=== PATIENT | female | born 1930 | race Caucasian/White ===

== ENCOUNTER 2017-12-30 16:08 | Emergency (ER) | payer MEDICARE, MEDICAID ==
[2017-12-30 16:15] VITALS: BP 205/89
--- NOTE | 2017-12-30 18:16 | EDM.PDOC ---
ED HPI GENERAL MEDICAL PROBLEM - General Chief Complaint: General Stated Complaint: [facility] Time Seen by Provider: 12/30/17 16:54 Source of Information: Reports: Patient, Family (Son) History Limitations: Reports: No Limitations - History of Present Illness INITIAL COMMENTS - FREE TEXT/NARRATIVE: The patient states that she felt generally weak and dizzy today after she ate lunch, around noon. It is difficult to determine if the patient's dizziness is due to lightheadedness or vertigo. She states that it "felt like something wrong ". She reports loose bowel movements yesterday, but not today. She reports urinary frequency for the past few days, but no dysuria. No recent fever, chills , cough, chest pain, dyspnea, nausea, vomiting, or constipation. The patient states that she fell about 2 weeks ago, during physical therapy. She was not injured, but the that scared her, and the patient feels that that fear may be contributing to her current symptoms. The patient also reports that she saw Dr. Burris one week ago, Friday, 2017, for a steroid injection of her left knee. The patient's PCP is Dr. Lorenzo. - Related Data Allergies Allergy/AdvReac Type Severity Reaction Status Date / Time ciprofloxacin Allergy Cannot Verified 06/22/14 07:09 Remember diazepam [From Valium] Allergy Cannot Verified 06/22/14 07:09 Remember escitalopram oxalate Allergy Rash Verified 07/23/15 20:17 [From Lexapro] Iodinated Contrast- Oral and Allergy Cannot Verified 06/22/14 07:09 IV Dye Remember [Iodinated Contrast Media - IV Dye] morphine Allergy Swollen Verified 06/22/14 07:17 Tongue Penicillins Allergy Swollen Verified 06/22/14 07:17 Tongue tramadol AdvReac Anxiety Verified 07/24/15 09:29 Home Meds: Home Meds Acetaminophen [Tylenol Extra Strength] 1,000 mg PO Q6H 05/02/15 [History] Atenolol 25 mg PO DAILY 05/02/15 [History] Losartan [Cozaar] 100 mg PO DAILY 05/02/15 [History] Aspirin 81 mg PO DAILY 12/30/17 [History] Bisacodyl [Dulcolax] 10 mg RECTAL DAILY PRN 12/30/17 [History] Calcium Carbonate/Vitamin D2 [Oyster Shell Calcium-Vit D Tab] 1 tab PO DAILY [History] Ibuprofen 200 mg PO Q4H PRN 12/30/17 [History] Mchenry-3/DHA/Epa/Fish Oil [Mchenry-3 Fish Oil 1,000 MG Sfgl] 1 tab PO DAILY [History] Propylene Glycol [Systane Balance] 1 drop EYEBOTH TID 12/30/17 [History] Past Medical History HEENT History: Reports: Hard of Hearing, Impaired Vision Cardiovascular History: Reports: CAD, Hypertension, [place] Genitourinary History: Reports: Urinary Incontinence CAD DRAFTER History: Reports: Musculoskeletal History: Reports: Arthritis, Back Pain, Chronic Neurological History: Reports: CVA Hematologic History: Reports: Blood Transfusion(s) - Past Surgical History HEENT Surgical History: Reports: Cataract Surgery, Oral Surgery ([place] teeth extraction), Other (See Below) (left inner ear surgery) Cardiovascular Surgical History: Reports: Coronary Artery Bypass (x 1 vessel around 2011) Female Surgical History: Reports: Hysterectomy, Salpingo-Oophorectomy, Other (See Below) (Bladder suspension) Musculoskeletal Surgical History: Reports: Hip Replacement (bilateral) Social & Family History - Tobacco Use Smoking Status *Q: Never Smoker Second Hand Smoke Exposure: No - Caffeine Use Caffeine Use: Reports: Coffee Other Caffeine Use: fiona alfredo - Alcohol Use Alcohol Use History: No - Recreational Drug Use Recreational Drug Use: No - Living Situation & Occupation Living situation: Reports: , Extended Care Facility ([facility]) Occupation: Retired ED ROS GENERAL - Review of Systems Review Of Systems: ROS reveals no pertinent complaints other than HPI. ED EXAM, GENERAL - Physical Exam Exam: See Below Exam Limited By: No Limitations General Appearance: Alert, WD/WN, No Apparent Distress Eye Exam: Bilateral Eye: Normal Inspection Ears: Normal External Exam, Hearing Grossly Normal Nose: Normal Inspection, No Blood Throat/Mouth: Normal Inspection, Normal Lips, Normal Voice, No Airway Compromise Head: Atraumatic, Normocephalic Neck: Normal Inspection, Full Range of Motion Respiratory/Chest: No Respiratory Distress, Lungs Clear, Normal Breath Sounds, No Accessory Muscle Use Cardiovascular: Normal Peripheral Pulses, Regular Rate, Rhythm, No Edema, No Gallop, No JVD, No Murmur, No Rub, Other (Fixed split S1) Peripheral Pulses: 4+: Radial (L), Radial (R) GI/Abdominal: Normal Bowel Sounds, Soft, No Organomegaly, No Distention, No Abnormal Bruit, No Mass, Tender (Suprapubic only. Nontender elsewhere.) (Female) Exam: Deferred Rectal (Female) Exam: Deferred Extremities: Normal Inspection, Normal Range of Motion, No Pedal Edema, Normal Capillary Refill Neurological: Alert, No Motor/Sensory Deficits, Slow to Respond Psychiatric: Flat Affect Skin Exam: Warm, Dry, Intact, Normal Color, No Rash EKG INTERPRETATION EKG Date: 12/30/17 Time: 18:12 Rhythm: Other (Sinus arrhythmia) Rate (Beats/Min): 60 [place]: LAD-Left [place] Deviation P-Wave: Present (First-degree AV block) QRS: Normal ST-T: Normal QT: Normal Comparison: No Change (07/23/2015) Course - Vital Signs Last Recorded V/S: Last Vital Signs Temp 36.6 C 12/30/17 16:14 Pulse 67 12/30/17 16:14 Resp 20 12/30/17 16:14 BP 205/89 H 12/30/17 16:14 Pulse Ox 96 12/30/17 16:14 Orthostatic Blood Pressure [ 196/115 Sitting] Orthostatic Blood Pressure [ 198/82 Supine] - Orders/Labs/Meds Orders: Active Orders 24 hr Category Date Time Status EKG Documentation Completion [RC] STAT Care 12/30/17 17:31 Active Orthostatic Vital Signs [RC] STAT Care 12/30/17 17:31 Active UA W/MICROSCOPIC [URIN] Stat Lab 12/30/17 17:46 Ordered Labs: Laboratory Tests 12/30/17 12/30/17 12/30/17 Range/Units 17:46 18:06 18:06 WBC 7.54 (3.98-10.04) K/mm3 RBC 3.82 L (3.98-5.22) M/mm3 Hgb 12.7 (11.2-15.7) gm/L Hct 39.0 (34.1-44.9) % MCV 102.1 H (79.4-94.8) fl MCH 33.2 H (25.6-32.2) pg MCHC 32.6 (32.2-35.5) g/dl RDW Std Deviation 43.5 (36.4-46.3) fL Plt Count 258 (182-369) K/mm3 MPV 8.9 L (9.4-12.3) fl Neutrophils % (Manual) 76 H (40-60) % Band Neutrophils % 0 (0-10) % Lymphocytes % (Manual) 15 L (20-40) % Atypical Lymphs % 0 % Monocytes % (Manual) 5 (2-10) % Eosinophils % (Manual) 3 (0.7-5.8) % Basophils % (Manual) 1 (0.1-1.2) Platelet Estimate Adequate Plt Morphology Comment Normal Macrocytosis 1+ slight RBC Morph Comment Not Reportable Sodium 136 (136-145) mEq/L Potassium 4.7 (3.5-5.1) mEq/L Chloride 101 (98-107) mEq/L Carbon Dioxide 29 (21-32) mEq/L Anion Gap 10.7 (5-15) BUN 28 H (7-18) mg/dL Creatinine 1.0 (0.55-1.02) mg/dL Est Cr Clr Drug Dosing 34.87 mL/min Estimated GFR (MDRD) 53 (>60) mL/min BUN/Creatinine Ratio 28.0 H (14-18) Glucose 98 (83-115) mg/dL Calcium 9.4 (8.5-10.1) mg/dL Magnesium 2.3 (1.8-2.4) mg/dl Total Bilirubin 0.5 (0.2-1.0) mg/dL AST 17 (15-37) U/L ALT 25 (14-59) U/L Alkaline Phosphatase 70 (46-116) U/L Troponin I < 0.017 (0.00-0.056) ng/mL Total Protein 7.3 (6.4-8.2) g/dl Albumin 3.6 (3.4-5.0) g/dl Globulin 3.7 gm/dL Albumin/Globulin Ratio 1.0 (1-2) TSH 3rd Generation 1.446 (0.358-3.74) uIU/mL Urine Color Light yellow (Yellow) Urine Appearance Clear (Clear) Urine pH 7.5 (5.0-8.0) Ur Specific [place] 1.015 (1.005-1.030) Urine Protein Negative (Negative) Urine Glucose (UA) Negative (Negative) Urine Ketones Negative (Negative) Urine Occult Blood Negative (Negative) Urine Nitrite Negative (Negative) Urine Bilirubin Negative (Negative) Urine Urobilinogen 0.2 (0.2-1.0) Ur Leukocyte Esterase Negative (Negative) Urine RBC Not seen (0-5) /hpf Urine WBC Not seen (0-5) /hpf Ur Epithelial Cells 0-5 (0-5) /hpf Urine Bacteria Not seen (FEW) /hpf Urine Mucus Not seen (FEW) /hpf - Re-Assessments/Exams Free Text/Narrative Re-Assessment/Exam: 12/30/17 17:42 The patient is not orthostatic, however, blood pressure was checked only supine and sitting; the patient complained that the room was spinning with an attempt to stand. 12/30/17 18:23 Notified by Vicky MERINO that the patient's post-void urine volume was 700 mL. 12/30/17 18:43 I discussed the situation with the patient and her 2 sons. The patient doesn't say that the room was spinning, per se, just that something felt like it was not right. Further, the patient apparently has a bad lower back, bad enough to put her into the assisted, and is therefore not an appropriate candidate for Nuria-Hallpike maneuvers. 12/30/17 18:56 Test results discussed with the patient and her 2 sons. Pelon's workup, with the exception of the finding of urinary retention, is otherwise unremarkable. I do not see an indication to admit the patient to the hospital, however, since the patient is not feeling well, we offered placement into observation, if she wished. The patient feels that she is well enough to return to the assisted. I am recommending that she follow-up with Dr. Lorenzo at the next available appointment, preferably this week, and that he may refer the patient to a Urologist. Departure - Departure Time of Disposition: 18:57 Disposition: Home, Self-Care 01 Condition: Fair Clinical Impression: Disequilibrium, Generalized weakness, Urinary retention - Discharge Information Referrals: Hector Lorenzo MD [Primary Care Provider] - Forms: ED Department Discharge Additional Instructions: You were seen in the emergency room for generalized weakness and lightheadedness. Workup in the ER included blood work, a urinalysis, and ECG, and positional blood pressure checks. Your workup found that you have significant urinary retention - 700 mL post void. This needs to be followed up, likely with a Urologist. The remainder of your workup was unremarkable. The cause of your symptoms is not known. Follow-up with your PCP, Dr. Lorenzo, at the next available appointment. If any other problems, please do not hesitate to return to the ER. - My Orders Last 24 Hours: My Active Orders 12/30/17 17:31 EKG Documentation Completion [RC] STAT Orthostatic Vital Signs [RC] STAT 12/30/17 17:46 UA W/MICROSCOPIC [URIN] Stat - Assessment/Plan Last 24 Hours: My Active Orders 12/30/17 17:31 EKG Documentation Completion [RC] STAT Orthostatic Vital Signs [RC] STAT 12/30/17 17:46 UA W/MICROSCOPIC [URIN] Stat
== END 2017-12-30 19:18 | disposition home or self-care (01) ==
LOC: SUPCPDRO 16:08 → JD.ED 16:08
DX: E87.8 Other disorders of electrolyte and fluid balance, not elsewhere classified (principal); R33.9 Retention of urine, unspecified; I10 Essential (primary) hypertension; I25.2 Old myocardial infarction; Z88.1 Allergy status to other antibiotic agents; Z88.0 Allergy status to penicillin; Z79.82 Long term (current) use of aspirin
CPT/HCPCS: 36415; 80053; 81001; 83735; 84443; 84484; 85007; 85027; 93005; 99285-25

== ENCOUNTER 2019-12-25 05:27 | Emergency (ER) | payer MEDICARE, MEDICAID ==
[2019-12-25 05:31] VITALS: BP 123/80; PULSE 99
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
--- NOTE | 2019-12-25 10:11 | CR ---
Chest: Portable view of the chest was obtained. Comparison: No prior chest imaging is available. Heart size is slightly enlarged. Tortuous thoracic aorta is noted. Lung markings mildly increased most likely chronic. Degenerative change is noted within both shoulders. Bony structures are osteopenic. Nothing acute is definitely appreciated. Impression: 1. Findings as described above. 2. Nothing acute is definitely appreciated. Diagnostic code #2 This report was dictated in MDT
--- NOTE | 2019-12-25 10:11 | CT ---
CT cervical spine Technique: Multiple axial sections were obtained from above C1 inferiorly to the bottom of T3. Reconstructed sagittal and coronal images were reviewed. Comparison: No prior cervical spine imaging is available. Findings: Severe disc space narrowing is noted at C2-3, C4-5, C5-6 and T1-2 as well as T2-3. Mild spondylolisthesis is noted at T2-3 due to degenerative apophyseal change. Mild spondylolisthesis is noted at C7-T1 due to degenerative apophyseal change. Scattered posterior spurring is noted. Scattered neural foraminal narrowing is noted. No discrete fracture is appreciated. Impression: 1. Diffuse degenerative change and osteopenia. 2. No definite fracture is appreciated. Diagnostic code #2 This report was dictated in MDT I agree with preliminary report from sharif, finalized on 12/25/19, 7:39 AM Central Daylight Time
--- NOTE | 2019-12-25 10:11 | CT ---
Head CT Technique: Multiple axial sections through the brain were obtained. Intravenous contrast was not utilized. Comparison: No prior intracranial imaging is available. Findings: Ventricles along with basal cisterns and sulci over the convexities are moderately prominent. Diminished density is noted within the periventricular and subcortical white matter most likely representing small vessel ischemic demyelination change. No other abnormal parenchymal densities are seen. No evidence of intracranial hemorrhage. No midline shift or mass-effect is appreciated. Bone window settings were reviewed. Visualized paranasal sinuses show nothing acute. Atherosclerotic calcification is seen within the vertebral vessels and within the carotid siphon. Hypoplastic right maxillary sinus is noted which is developmental. Visualized mastoid sinuses show nothing acute. No acute calvarial abnormality is appreciated. Impression: 1. Senescent change as noted above. 2. No acute intracranial abnormality is appreciated. Diagnostic code #2 This report was dictated in MDT
--- NOTE | 2019-12-25 10:11 | CR ---
Right shoulder: 3 views of the right shoulder were obtained. Comparison: No prior shoulder exam. Severe degenerative change is noted within the glenohumeral joint with joint space narrowing, subchondral cysts and inferior osteophytes. Mild joint space narrowing is noted within the acromioclavicular joint. No acute fracture, dislocation or other bony abnormality is seen. Carotid artery calcification is seen within the neck. Impression: 1. Degenerative change as noted above. 2. No acute abnormality is appreciated on 3 view right shoulder exam. Diagnostic code #2 This report was dictated in MDT
--- NOTE | 2019-12-25 10:11 | CR ---
Pelvis and right hip: AP view of the pelvis was obtained as well as AP and frog-leg lateral views of the right hip. Comparison: Prior AP pelvis study and left hip exam of 04/25/09. Bilateral hip prosthesis are seen. Disc space narrowing is noted within the visualized lower lumbar spine. Bony structures are osteopenic. Vascular calcification is noted. No discrete fracture or dislocation is seen. Impression: 1. Findings as described above. 2. Nothing acute is seen on AP pelvis or on 2 view right hip exam. Diagnostic code #2 This report was dictated in MDT
== END 2019-12-25 07:58 | disposition home or self-care (01) ==
LOC: JD.ED 05:27
DX: S16.1XXA Strain of muscle, fascia and tendon at neck level, initial encounter (principal); S93.491A Sprain of other ligament of right ankle, initial encounter; S40.011A Contusion of right shoulder, initial encounter; S20.211A Contusion of right front wall of thorax, initial encounter; S70.01XA Contusion of right hip, initial encounter; I10 Essential (primary) hypertension; I25.2 Old myocardial infarction; I25.10 Atherosclerotic heart disease of native coronary artery without angina pectoris; M19.90 Unspecified osteoarthritis, unspecified site; Z86.73 Personal history of transient ischemic attack (TIA), and cerebral infarction without residual deficits; F32.9 Major depressive disorder, single episode, unspecified; Z88.1 Allergy status to other antibiotic agents; Z88.8 Allergy status to other drugs, medicaments and biological substances; Z91.041 Radiographic dye allergy status; Z88.5 Allergy status to narcotic agent; Z88.0 Allergy status to penicillin; Z79.899 Other long term (current) drug therapy; Z79.82 Long term (current) use of aspirin; W19.XXXA Unspecified fall, initial encounter
CPT/HCPCS: 70450; 70450-26; 71045; 71045-26; 72125; 72125-26; 73030-26-RT; 73030-RT; 73502-26-RT; 73502-RT; 99284; 99284-25

== ENCOUNTER 2020-06-30 20:03 | Emergency (ER) | payer MEDICARE, MEDICAID ==
--- NOTE | 2020-06-30 20:58 | EDM.PDOC ---
ED HPI GENERAL MEDICAL PROBLEM - General Chief Complaint: Lower Extremity Injury/Pain Stated Complaint: [facility] Time Seen by Provider: 06/30/20 20:19 Source of Information: Reports: Patient History Limitations: Reports: Altered Mental Status - History of Present Illness INITIAL COMMENTS - FREE TEXT/NARRATIVE: This is an 89-year-old female from [facility]. She apparently fell rolled out of bed and she was found on the floor. She complains of left shoulder pain and generalized pelvis or hip pain and some mild left lower leg pain. It was mentioned in the nurse report from the senior living that she had a swollen left wrist. The patient does not believe she hit her head and there was no loss of consciousness however she lay on the floor for an undetermined time before someone found her. They bring her to the ER for evaluation. The patient has no specific complaints other than movement of her extremities seems to cause pain. She is Covid positive and was diagnosed on June 27. Left Leg Pain Score (Numeric/FACES): 5 - Related Data Allergies Allergy/AdvReac Type Severity Reaction Status Date / Time ciprofloxacin Allergy Cannot Verified 06/30/20 20:19 Remember diazepam [From Valium] Allergy Cannot Verified 06/30/20 20:19 Remember escitalopram oxalate Allergy Rash Verified 06/30/20 20:19 [From Lexapro] Iodinated Contrast Media Allergy Cannot Verified 06/30/20 20:19 [Iodinated Contrast Media - Remember IV Dye] morphine Allergy Swollen Verified 06/30/20 20:19 Tongue Penicillins Allergy Swollen Verified 06/30/20 20:19 Tongue tramadol AdvReac Anxiety Verified 06/30/20 20:19 Home Meds: Home Meds Losartan [Cozaar] 100 mg PO DAILY 05/02/15 [History] atenoloL [Atenolol] 25 mg PO DAILY 05/02/15 [History] Aspirin 81 mg PO DAILY 12/30/17 [History] Ibuprofen 200 mg PO Q4H PRN 12/30/17 [History] Propylene Glycol [Systane Balance] 1 drop EYEBOTH TID 12/30/17 [History] bisacodyL [Dulcolax] 10 mg RECTAL DAILY PRN 12/30/17 [History] Furosemide [Lasix] 20 mg PO DAILY 12/25/19 [History] Acetaminophen [Tylenol] 975 mg PO 06/30/20 [History] Clobetasol [Clobetasol Propionate 0.05% Cream] 15 gm TOP BID 06/30/20 [History] Loratadine 10 mg PO DAILY 06/30/20 [History] Past Medical History HEENT History: Reports: Hard of Hearing, Impaired Vision Cardiovascular History: Reports: CAD, Hypertension, CO Gastrointestinal History: Reports: Chronic Constipation Genitourinary History: Reports: Urinary Incontinence [employer] History: Reports: Musculoskeletal History: Reports: Arthritis, Back Pain, Chronic Neurological History: Reports: CVA Psychiatric History: Reports: Depression Hematologic History: Reports: Blood Transfusion(s) - Infectious Disease History Infectious Disease History: Reports: Novel Coronavirus - Past Surgical History HEENT Surgical History: Reports: Cataract Surgery, Oral Surgery, Other (See Below) Other HEENT Surgeries/Procedures: deviated septum correction Cardiovascular Surgical History: Reports: Coronary Artery Bypass GI Surgical History: Reports: Colonoscopy Female Surgical History: Reports: Hysterectomy, Salpingo-Oophorectomy, Other (See Below) Musculoskeletal Surgical History: Reports: Hip Replacement Other Musculoskeletal Surgeries/Procedures:: left hip pain, L3 compression fx, scoliosis Social & Family History - Tobacco Use Tobacco Use Status *Q: Never Tobacco User Second Hand Smoke Exposure: No - Caffeine Use Caffeine Use: Reports: Coffee, Soda Other Caffeine Use: fiona alfredo - Recreational Drug Use Recreational Drug Use: No - Living Situation & Occupation Living situation: Reports: , Extended Care Facility ([facility]) Occupation: Retired Review of Systems - Review of Systems Review Of Systems: See Below Constitutional: Denies: Chills, Fever Eyes: Reports: No Symptoms Ears: Reports: No Symptoms Nose: Reports: Other (She denies any complaints) Mouth/Throat: Reports: Other (She denies any complaints) Respiratory: Denies: Shortness of Breath, Cough Cardiovascular: Denies: Chest Pain GI/Abdominal: Reports: No Symptoms Genitourinary: Reports: No Symptoms Musculoskeletal: Reports: Other (Multiple areas of her skeletal skeletal system seem to be aching or hurting since her fall.) Skin: Reports: No Symptoms Neurological: Reports: Other (Seems to be slightly confused) Psychiatric: Reports: Confusion ED EXAM, GENERAL - Physical Exam Exam: See Below Exam Limited By: Other (Peers to have some mild confusion possible dementia) General Appearance: Alert, Anxious, Thin Eye Exam: Bilateral Eye: Normal Inspection Ears: Normal External Exam Nose: Normal Inspection Throat/Mouth: Normal Voice, No Airway Compromise Head: Atraumatic, Normocephalic Neck: Supple, Other (Denies any cervical tenderness) Respiratory/Chest: No Respiratory Distress, Lungs Clear, Normal Breath Sounds, Other (Anterior chest and ribs on palpation she does not complain of pain.) Cardiovascular: Regular Rate, Rhythm, No Murmur GI/Abdominal: Soft, Non-Tender Back Exam: Decreased Range of Motion Extremities: Other (Upper extremity she has a faint developing bruise on her posterior left shoulder and she complains of pain with movement of the shoulder, her right shoulder appears to be frozen so she has limited range of motion of that, her left wrist does not appear to be swollen and she is not really complaining of pain. Her lower extremity she is able to straight leg lift both of her legs but she complains of generalized pelvic soreness or pain. She does have a bruise developing on her anterior man on the left lower leg but does not appear to be complaining of pain or tenderness.) Neurological: Alert, Confused Psychiatric: Anxious Skin Exam: Warm, Dry Course - Vital Signs Last Recorded V/S: Last Vital Signs Temp 97.6 F 06/30/20 20:13 Pulse 96 06/30/20 22:14 Resp 22 H 06/30/20 20:13 BP 143/73 H 06/30/20 22:14 Pulse Ox 95 06/30/20 23:47 - Orders/Labs/Meds Orders: Active Orders 24 hr Category Date Time Status Head wo Cont [CT] Stat Exams 06/30/20 22:06 Taken Hip Min 2V or 3V Lt [CR] Stat Exams 06/30/20 20:50 Ordered Shoulder Comp Lt [CR] Stat Exams 06/30/20 20:50 Ordered Tibia Fibula Lt [CR] Stat Exams 06/30/20 20:50 Taken Wrist Comp Min 3V Lt [CR] Stat Exams 06/30/20 20:50 Ordered - Radiology Interpretation Free Text/Narrative:: X-ray of the left wrist shows a lot of arthritic changes but no acute fractures. X-rays of the left shoulder shows arthritis but no acute fractures. X-rays of the left tib-fib do not show any acute fractures but noted atherosclerotic vessels. X-ray of the left hip shows a replaced hip but no acute fractures. - Re-Assessments/Exams Free Text/Narrative Re-Assessment/Exam: 06/30/20 22:05 Spoke to the patient regarding her x-ray results. Peer to be any acute fractures but she has a lot of arthritis and she has bruised herself. I will be sending her back to [facility]. 06/30/20 22:24 Radiologist thinks that she might have a possible nondisplaced fracture of the ulnar styloid however due to the extensive arthritic changes they are not absolutely certain. Departure - Departure Time of Disposition: 00:47 Disposition: Home, Self-Care 01 Condition: Poor Clinical Impression: Lab test positive for detection of COVID-19 virus Contusion of shoulder, left Qualifiers: Encounter type: initial encounter Qualified Code(s): S40.012A - Contusion of left shoulder, initial encounter Left wrist sprain Qualifiers: Encounter type: initial encounter Qualified Code(s): S63.502A - Unspecified sprain of left wrist, initial encounter Contusion of left hip Qualifiers: Encounter type: initial encounter Qualified Code(s): S70.02XA - Contusion of left hip, initial encounter Contusion of left lower leg Qualifiers: Encounter type: initial encounter Qualified Code(s): S80.12XA - Contusion of left lower leg, initial encounter - Discharge Information *PRESCRIPTION DRUG MONITORING PROGRAM REVIEWED*: Not Applicable *COPY OF PRESCRIPTION DRUG MONITORING REPORT IN PATIENT NIEVES: Not Applicable Instructions: How to Use Cold Therapy, COVID-19 Frequently Asked Questions, Contusion, [id number] Referrals: Hector Lorenzo MD [Primary Care Provider] - Forms: ED Department Discharge Additional Instructions: You were seen in the ER because you said you fell out of bed and hurt herself, you have a contusion to your left shoulder your left hip and your left lower leg and a sprain of your left wrist. There were no definite fractures noted. You may use ice to these areas on and off and you may continue with Tylenol or ibuprofen as needed for pain. Continue to monitor your COVID-19 symptoms and stay under quarantine until your 14 days is over, return to the ER if needed and follow-up with your family doctor later this week. Sepsis Event Note (ED) - Evaluation Sepsis Screening Result: No Definite Risk - Focused Exam Vital Signs: Vital Signs Temp Pulse Resp BP Pulse Ox Pulse Ox 06/30/20 23:47 95 06/30/20 22:14 96 143/73 H 93 L 06/30/20 20:13 97.6 F 99 22 H 169/108 H 93 L - My Orders Last 24 Hours: My Active Orders 06/30/20 20:50 Hip Min 2V or 3V Lt [CR] Stat Shoulder Comp Lt [CR] Stat Tibia Fibula Lt [CR] Stat Wrist Comp Min 3V Lt [CR] Stat 06/30/20 22:06 Head wo Cont [CT] Stat - Assessment/Plan Last 24 Hours: My Active Orders 06/30/20 20:50 Hip Min 2V or 3V Lt [CR] Stat Shoulder Comp Lt [CR] Stat Tibia Fibula Lt [CR] Stat Wrist Comp Min 3V Lt [CR] Stat 06/30/20 22:06 Head wo Cont [CT] Stat
[2020-07-01 00:57] VITALS: BP 150/92; PULSE 95
--- NOTE | 2020-07-03 08:58 | CR ---
PROCEDURE INFORMATION: Exam: XR Left Hip with Pelvis when Performed Exam date and time: 06/30/2020 9:14 PM Age: 89 years old Clinical indication: Hip pain; Left hip; Patient HX: PT fell 06/29/2020 having left sided pain, HX SX bilat hip replacements; Additional info: Prior reports have been scanned for review TECHNIQUE: Imaging protocol: XR Left hip with pelvis when performed. Views: 2 or 3 views. COMPARISON: CT Pelvis wo Cont 05/02/2015 11:07 PM FINDINGS: Bones/joints: Bilateral hip ana arthroplasties. No acute fracture or dislocation. Soft tissues: Unremarkable. Vasculature: Vascular calcifications. IMPRESSION: No acute fracture or dislocation. Thank you for allowing us to participate in the care of your patient. Dictated and Authenticated by: Aba Mata MD 06/30/2020 11:22 PM Central Time ([place] & [place]) [facility]
--- NOTE | 2020-07-03 08:59 | CR ---
PROCEDURE INFORMATION: Exam: XR Left Shoulder Exam date and time: 06/30/2020 9:22 PM Age: 89 years old Clinical indication: Upper arm and shoulder; Patient HX: PT fell 06/29/2020 having left sided pain; Additional info: Prior reports have been scanned for review TECHNIQUE: Imaging protocol: XR Left shoulder. Views: 2 or more views. COMPARISON: Non. FINDINGS: Bones/joints: No acute fracture or dislocation. 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 Soft tissues: Normal. IMPRESSION: No acute fracture or dislocation. Thank you for allowing us to participate in the care of your patient. Dictated and Authenticated by: Aba Mata MD 06/30/2020 11:23 PM Central Time ([place] & [place]) [facility]
--- NOTE | 2020-07-03 09:00 | CR ---
PROCEDURE INFORMATION: Exam: XR Left Wrist Exam date and time: 06/30/2020 9:28 PM Age: 89 years old Clinical indication: Injury or trauma; Fall; Swelling (edema); Wrist; Patient HX: PT fell 06/29/2020 having pain on left side; Additional info: Prior reports have been scanned for review. TECHNIQUE: Imaging protocol: XR Left wrist. Views: 3 or more views. COMPARISON: No relevant prior studies available. FINDINGS: Bones/joints: Extensive chondrocalcinosis. Joint space narrowing at multiple joint spaces of the wrist. Severe degenerative joint disease 1st carpometacarpal joint. Possible nondisplaced fracture of the ulnar styloid. No other fractures. No dislocation. Soft tissues: Normal. IMPRESSION: Possible nondisplaced fracture of the ulnar styloid. Thank you for allowing us to participate in the care of your patient. Dictated and Authenticated by: Aba Mata MD 06/30/2020 11:22 PM Central Time ([place] & [place]) [facility]
--- NOTE | 2020-07-03 09:01 | CT ---
PROCEDURE INFORMATION: Exam: XR Left Tibia and Fibula Exam date and time: 06/30/2020 9:16 PM Age: 89 years old Clinical indication: Hip and lower leg; Patient HX: PT fell 06/29/2020 having pain on left side TECHNIQUE: Imaging protocol: XR Left tibia and fibula. Views: 2 views. COMPARISON: No relevant prior studies available. FINDINGS: Bones/joints: Normal. Soft tissues: Normal. Vasculature: Vascular calcifications. IMPRESSION: No fracture. Thank you for allowing us to participate in the care of your patient. Dictated and Authenticated by: Aba Mata MD 06/30/2020 11:19 PM Central Time ([place] & [place]) [facility]
--- NOTE | 2020-07-03 09:04 | CT ---
PROCEDURE INFORMATION: Exam: CT Head Without Contrast Exam date and time: 06/30/2020 11:15 PM Age: 89 years old Clinical indication: Pain; Patient HX: SERGIO jones AMS, fall 06/29/2020; Additional info: Prior reports scanned in for your review TECHNIQUE: Imaging protocol: Computed tomography of the head without contrast. COMPARISON: 1. CT Head wo Cont 12/25/2019 5:57 AM 2. (No prior similar studies are available for comparison.) FINDINGS: Periventricular white matter low attenuation consistent with chronic small vessel disease stable since the prior study dated 12/25/2019. There is no mass lesion or mass effect. There is diffuse central and cortical atrophy consistent with age. There is no CT evidence of acute parenchymal ischemia. There is no intra-axial or extra-axial hemorrhage. Mucosal thickening involving both maxillary sinuses with a small air-fluid level noted in the left maxillary sinus new since the prior study. This may represent acute on chronic sinusitis. Please correlate for any facial injury. Mastoid air cells are grossly normal. Visualized osseous structures are normal. Other findings: EXAM TYPE: CT of the BRAIN; DATE AND TIME: 06/30/2020 11:15 PM; CLINICAL INFORMATION:; Pain; Patient HX: SERGIO jones AMS, fall 06/29/2020; Additional info: Prior reports scanned in for your review IMPRESSION: 1. Mucosal thickening involving both maxillary sinuses with a small air-fluid level noted in the left maxillary sinus new since the prior study. This may represent acute on chronic sinusitis. Please correlate for any facial injury. 2. Central and cortical atrophy consistent with age. 3. No CT evidence of acute infarction, intracranial hemorrhage or mass. Thank you for allowing us to participate in the care of your patient. Dictated and Authenticated by: Yahir Levy MD 07/01/2020 12:50 AM Central Time ([place] & [place]) [facility]
== END 2020-07-01 02:45 | disposition home or self-care (01) ==
LOC: JD.ED 20:03
DX: S63.502A Unspecified sprain of left wrist, initial encounter (principal); S80.12XA Contusion of left lower leg, initial encounter; S70.02XA Contusion of left hip, initial encounter; S40.012A Contusion of left shoulder, initial encounter; U07.1 COVID-19; I10 Essential (primary) hypertension; I25.10 Atherosclerotic heart disease of native coronary artery without angina pectoris; I25.2 Old myocardial infarction; M19.90 Unspecified osteoarthritis, unspecified site; Z88.1 Allergy status to other antibiotic agents; Z91.041 Radiographic dye allergy status; Z88.5 Allergy status to narcotic agent; Z88.0 Allergy status to penicillin; Z79.82 Long term (current) use of aspirin; Z79.899 Other long term (current) drug therapy; W06.XXXA Fall from bed, initial encounter
CPT/HCPCS: 70450; 70450-26; 73030-26-LT; 73030-LT; 73110-26-LT; 73110-LT; 73502-26-LT; 73502-LT; 73590-26-LT; 73590-LT; 94762; 99283; 99284-25